=== PATIENT | male | born 1975 | race Caucasian/White ===

== ENCOUNTER 2021-05-15 12:52 | Emergency (ER) | payer MEDICAID, SELFPAY ==
[2021-05-15 13:07] VITALS: BP 117/78; PULSE 74; RESP 16; O2SAT 100; BMI 20.9
--- NOTE | 2021-05-15 13:25 | CT_ITS ---
WS: [id number] CT THORACIC SPINE HISTORY: trauma/struck by cow TECHNIQUE: Contiguous 2.5 mm axial images are reviewed to thoracic spine. Images are reformatted in s agittal and coronal planes. All CT scans at [facility] use at least one of these dose optimiz ation techniques: automated exposure control; mA and/or kV adjustment per patient size (includes targ eted exams where dose is matched to clinical indication); or iterative reconstruction. DLP: 1547.01 mGy.cm COMPARISON: None available. Normal thoracic alignment. No vertebral body fractures. Posterior elements are intact. The adjacent l ungs are clear. No pneumothorax or pulmonary contusion. No soft tissue injury is evident through the region of the thoracic spine. No disc protrusions or hematoma. CT/CT thoracic spin wo con* [id number] IMPRESSION: Negative thoracic spine CT. No fractures or soft tissue injury.
--- NOTE | 2021-05-15 13:25 | XR_ITS ---
WS: [id number] XR shoulder LT min 2V* 75475 REASON FOR EXAM: trauma; y view too please FINDINGS: Fracture of the distal end of the clavicle with mild superior displacement of the distal fracture fra gment. Glenohumeral joint is intact. No abnormality of the humerus. XR/XR shoulder LT min 2V* [id number] IMPRESSION: Fracture distal left clavicle.
--- NOTE | 2021-05-15 13:25 | XR_ITS ---
WS: [id number] XR forearm RT 2V [id number] REASON FOR EXAM: trauma FINDINGS: No fracture or other focal abnormality of the right radius or ulna. No soft tissue abnormality. XR/XR forearm RT 2V 87415 IMPRESSION: No significant abnormality of the right radius or ulna.
--- NOTE | 2021-05-15 13:25 | XR_ITS ---
WS: [id number] XR elbow RT min 3V* 56079 REASON FOR EXAM: trauma FINDINGS: Joint spaces of the right elbow are intact. No fracture or other focal bone abnormality. XR/XR elbow RT min 3V* 88445 IMPRESSION: No significant bone or joint abnormality of the right elbow.
--- NOTE | 2021-05-15 13:25 | XR_ITS ---
WS: [id number] [place] [address] REASON FOR EXAM: trauma/cow; laceration FINDINGS: No fracture or other focal abnormality of the right humerus. Apparent soft tissue injury adjacent to the distal humerus. XR/[place] [address] IMPRESSION: No abnormality of the right humerus.
--- NOTE | 2021-05-15 13:27 | ED_ITS ---
HPI - Trauma General: Chief Complaint: Extremity Injury, Upper Stated Complaint: TRAUMA:1200LB STEER OVERRAN PT/UPPER BODY INJURIES Time Seen by Provider: 05/15/21 13:17 Source: patient Mode of arrival: ambulatory Limitations: no limitations History of Present Illness: HPI narrative: Patient is a very nice 45-year-old male who presents to ED today along with his after he was struck by a 1200 pound cow/steer. He states the steer pinned him up against a cattle trailer gat e. He complains of pain to his left shoulder and near his right elbow. He has a laceration above his right elbow where he states his arm was punctured by a horn. Last tetanus was approximately 7 years ago. He states he was never knocked to the ground or trampled. No trauma to his head. No LOC. He does not complain of neck pain. He has some mid left-sided back pain. No abdominal pain MD complaint: injury Onset (ago): hour(s) Loss of Consciousness: no Location - Extremities: Left: shoulder and Right: elbow Associated symptoms: Reports no associated symptoms, back pain and chest pain (has some mild anterior chest pains afterwards but states these have subside); Denies abdominal pain, chills, dizziness, epistaxis, fever(s), headache(s), nausea, syncope or vomiting Review of Systems Const: Denies: fever(s), chills, body aches, fatigue or malaise Eyes: Denies: change in vision or blurry vision ENMT: Denies: throat pain, odynophagia, ear discharge, nasal discharge or epistaxis Card: Reports: chest pain (has some mild anterior chest pains afterwards but states these have subside); Denies: palpitations, irregular heart rhythm, edema, swelling of feet/ankles, lightheadedness, syncope or pre-syncope Resp: Denies: dyspnea or hemoptysis GI: Denies: abdominal pain, nausea or vomiting : Denies: flank pain or hematuria Musc: Reports: back pain, extremity pain, extremity swelling, joint pain (L shoulder, R elbow/forearm), joint swelling and limited range of motion; Denies: neck pain, joint redness or joint warmth Skin/Breast: Reports: other (laceration R UE) Neuro: Denies: headache(s), numbness in extremities, weakness in extremities, sensory changes, difficulty walking or dizziness Physical Exam Const: COMMON NORMALS: no acute distress, average body habitus, patient oriented x3, no limitations, healthy appearing, alert and well nourished GENERAL APPEARANCE: cooperative ORIENTATION/CONSCIOUSNESS: Yes awake, Yes oriented to person, Yes oriented to place and Yes oriented to time HENMT: COMMON NORMALS: normocephalic and atraumatic HEAD & SCALP: normal to inspection, normocephalic and atraumatic FACE & SINUS: normal facial exam Neck/C-Spine: COMMON NORMALS: full ROM GENERAL: Yes normal visual inspection CERVICAL SPINE: Yes cervical ROM normal, No Cervical spine tenderness, No step off deformity and No Paracervical muscle tenderness Chest: COMMONS NORMALS: normal inspection of the chest OTHER: mild pain to superior sternum and superior L anterior ribs; no creptius or external signs of trauma noted Resp: COMMON NORMALS: normal respiratory effort and clear to auscultation bilaterally AUSCULTATION: clear to auscultation bilaterally Cardio: COMMON NORMALS: regular rate and regular rhythm RATE: regular rate RHYTHM: regular rhythm GI: COMMON NORMALS: Normal to inspection, nondistended, normoactive bowel sounds present, Soft to palpation, non-tender, No hepatosplenomegaly present and no masses PALPATION: Yes Soft to palpation and Yes No hepatosplenomegaly present Back/Pelvis: THORACIC SPINE/UPPER BACK: Yes normal to inspection, Yes thoracic ROM normal, No thoracic spinal tenderness, Yes paraspinal muscle tenderness Thoracic paraspinal muscle tenderness: left and No paraspinal muscle spasm LUMBAR SPINE/LOWER BACK: Yes normal to inspection, Yes lumbar ROM normal, No lumbar spinal tenderness and No paraspinal muscle tenderness BACK IMAGE (MALE): 1. TTP Extremity: RIGHT UPPER EXTREMITY: Yes upper arm (laceration to distal upper arm) and Yes lower arm (mild pain/swelling noted to forearm) LEFT UPPER EXTREMITY: Yes shoulder joint Left shoulder joint: Yes inspection (ecchymosis/abrasions/swelling), Yes ROM (severely limited secondary to pain) and Yes neurovascular exam (normal) OTHER: pt has tenderness across R AC fossa and into distal bicep muscle; he has no evidence of a LHBT rupture at this time but could potentially have a distal bicep tendon tear Neuro: COMMON NORMALS: patient oriented x3, moves all extremities, no focal motor deficits and no sensory deficits noted SENSORIUM/ORIENTATION: Yes alert, Yes oriented to person, Yes oriented to place and Yes oriented to time Skin: NARRATIVE SKIN EXAM: ecchymosis/abrasions to L shoulder; 3.5cm laceration superior to R elbow-no bleeding Procedures Laceration Laceration 1: Site: upper extremity Side (If applicable): right Size (cm): 3.5 Description: linear Depth: simple, single layer Local Anesthetic: lidocaine 1% Amount of anesthesia used (mL): 4.0 Pre-repair: wound explored and irrigated extensively Skin layer closed with: nylon Size (cm): 4-0 Number of sutures: 5 Technique: simple, interrupted Course Vital Signs: Vital signs: Vital Signs Pulse Rate 74 05/15/21 13:07 Respiratory Rate 16 05/15/21 13:07 Blood Pressure 117/78 05/15/21 13:07 Pulse Oximetry 100 05/15/21 13:07 MDM - Trauma MDM Narrative: Medical decision making narrative: Pt has a L distal clavicle fracture that will be placed in a sling and CM will set him up with orthopedics. R arm laceration repaired as documented. No vascular or nerve injury noted on exam. He does have some muscle tenderness into forearm, across AC joint, and into distal biceps. Recommend ortho evaluate this during his follow up appointment to see if he possibly tore a ligament/tendon here. Wound care discussed at home. Return to ED precautions given. Imaging Data^: CT thoracic: Radiologist's impression: [address] [place] [address] CT Scan Report Signed Patient: Parth Monet Unit #: [id number] : 1975 Age/Sex: 45 / M ADM Date: 05/15/21 Loc: ER Room/Bed: Attending Dr: Ordering Provider/Ordering MD: Sherrie Romero Date of Service: 05/15/21 Procedure(s): CT thoracic spin wo con* [id number] Accession Number(s): [id number] Report Number: [id number] WS: [id number] CT THORACIC SPINE HISTORY: trauma/struck by cow TECHNIQUE: Contiguous 2.5 mm axial images are reviewed to thoracic spine. Images are reformatted in sagittal and coronal planes. All CT scans at [facility] use at least one of these dose optimization techniques: automated exposure control; mA and/or kV adjustment per patient size (includes targeted exams where dose is matched to clinical indication); or iterative reconstruction. DLP: 1547.01 mGy.cm COMPARISON: None available. Normal thoracic alignment. No vertebral body fractures. Posterior elements are intact. The adjacent lungs are clear. No pneumothorax or pulmonary contusion. No soft tissue injury is evident through the region of the thoracic spine. No disc protrusions or hematoma. CT/CT thoracic spin wo con* [id number] IMPRESSION: Negative thoracic spine CT. No fractures or soft tissue injury. Dictated By: Josefina Thibodeaux DO Signed By: Josefina Thibodeaux DO Signed Date/Time: 05/15/211355 DD/ 52 CT Chest: Radiologist's impression: [facility] [place] [address] 75CT Scan ReportSigned Patient: Parth Monet #: [id number]: 1975Acct#:[id number] e/Sex: 45 / MADM Date: 05/15/21Loc: ERRoom/Bed:Attending Dr: Ordering Provider/Ordering MD: Sherrie Romero Date of Service: 05/15/21 Procedure(s): CT chest w con* [id number] Accession Number(s): [id number] Report Number: [id number] WS: [id number] CT CHEST WITH INTRAVENOUS CONTRAST HISTORY: trauma/struck by cow TECHNIQUE: Contiguous 5 mm axial imaging performed on the thorax. Coronal and sagittal reformats are submitted. All CT scans at [facility] use at least one of these dose optimization techniques: automated exposure control; mA and/or kV adjustment per patient size (includes targeted exams where dose is matched to clinical indication); or iterative reconstruction. CONTRAST: Omnipaque 300; 95 mL IV. DLP: 631.2 mGy.cm COMPARISON: None available. Lungs and central airway: Normal. Pleura: Normal. No pleural effusion. Heart and pericardium: Normal size heart with no pericardial effusion. Mediastinum and latha: No mediastinum or hilar adenopathy. Vessels: Normal size aortic and pulmonary artery. No coronary artery calcifications. Chest wall and lower neck: No soft tissue masses. Upper abdomen: Numerous surgical clips are noted near the GE junction. Osseous structures: No destructive process. CT/CT chest w con* [id number] IMPRESSION: Negative CT chest. No vascular injury or pneumothorax. No pulmonary contusion. Notified SANTOS Hoover at 05/15/2021 2:01 PM. Dictated By:Josefina Thibodeaux DOSigned By:Josefina Thibodeaux DOSigned Date/Time:05/15/21 1401DD/ 1356 XR L shoulder: Radiologist's impression: [employer] [address] [facility] [place] [address] XRay Report Signed Patient: Parth Monet Unit #: [id number] : 1975 Age/Sex: 45 / M ADM Date: 05/15/21 Loc: ER Room/Bed: Attending Dr: Ordering Provider/Ordering MD: Sherrie Romero Date of Service: 05/15/21 Procedure(s): XR shoulder LT min 2V* 62570 Accession Number(s): [id number] Report Number: [id number] WS: [id number] XR shoulder LT min 2V* [id number] REASON FOR EXAM: trauma; y view too please FINDINGS: Fracture of the distal end of the clavicle with mild superior displacement of the distal fracture fragment. Glenohumeral joint is intact. No abnormality of the humerus. XR/XR shoulder LT min 2V* 87937 IMPRESSION: Fracture distal left clavicle. Dictated By: Kristopher Benitez Jr, MD Signed By: Kristopher Benitez Jr, MD Signed Date/Time: 05/15/21 140 DD/ 1359 XR R elbow: Radiologist's impression: [email or web address] [facility], [place] [address]JNig ReportSigned Patient: Parth Monetit #: [id number]: 1975Acct#:[id number]/Sex: 45 / MADM Date: 05/15/21Loc: ERRoom/Bed:Attending Dr: Ordering Provider/Ordering MD: Sherrie Romero Date of Service: 05/15/21 Procedure(s): XR elbow RT min 3V* 11088 Accession Number(s): [id number] Report Number: [id number] WS: [id number] XR elbow RT min 3V* 28210 REASON FOR EXAM: trauma FINDINGS: Joint spaces of the right elbow are intact. No fracture or other focal bone abnormality. XR/XR elbow RT min 3V* 93120 IMPRESSION: No significant bone or joint abnormality of the right elbow. Dictated By:Kristopher Benitez Jr MDSigned By:Kristopher Benitez Jr MDSigned Date/Time:05/15/214DD/ 23 XR R forearm: Radiologist's impression: [email or web address] [address] XRay Report Signed Patient: Parth Monet Unit #: [id number] : 1975 Age/Sex: 45 / M ADM Date: 05/15/21 Loc: ER Room/Bed: Attending Dr: Ordering Provider/Ordering MD: Sherrie Romero Date of Service: 05/15/21 Procedure(s): XR forearm RT 2V 38175 Accession Number(s): [id number] Report Number: [id number] WS: [id number] XR forearm RT 2V 56859 REASON FOR EXAM: trauma FINDINGS: No fracture or other focal abnormality of the right radius or ulna. No soft tissue abnormality. XR/XR forearm RT 2V 07791 IMPRESSION: No significant abnormality of the right radius or ulna. Dictated By: Kristopher Benitez Jr, MD Signed By: Kristopher Benitez Jr, MD Signed Date/Time: 05/15/211425 DD/ 24 XR R humerus: Radiologist's impression: [email or web address] [place] [address] XRay Report Signed Patient: TierneyParth Dowell Unit #: [id number] : 1975 Age/Sex: 45 / M ADM Date: 05/15/21 Loc: ER Room/Bed: Attending Dr: Ordering Provider/Ordering MD: Sherrie Romero Date of Service: 05/15/21 Procedure(s): [place] [address] Accession Number(s): [id number] Report Number: [id number] WS: [id number] [address] REASON FOR EXAM: trauma/cow; laceration FINDINGS: No fracture or other focal abnormality of the right humerus. Apparent soft tissue injury adjacent to the distal humerus. XR/[place] [address] IMPRESSION: No abnormality of the right humerus. Dictated By: Kristopher Benitez Jr, MD Signed By: Kristopher Benitez Jr, MD Signed Date/Time: 05/15/211422 DD/ 21 Discharge Plan Discharge Patient Disposition: Home Clinical Impression: Closed fracture of left clavicle Qualifiers: Encounter type: initial encounter Clavicle location: lateral end Fracture ali gnment: nondisplaced Qualified Code(s): S42.035A - Nondisplaced fracture of lateral end of left clavicle, initial encounter for closed fracture Laceration of right upper extremity Qualifiers: Encounter type: initial encounter Qualified Code(s): S41.111A - Laceration without foreign body of right upper arm, initial encounter Injury caused by animal Qualifiers: Encounter type: initial encounter Qualified Code(s): W64.XXXA - Exposure to other animate mechanical forces, initial encounter Condition: Stable Prescriptions: New hydrocodone-acetaminophen 5-325 mg tablet 1 tab PO Q4H PRN (Reason: pain) Qty: 20 RF: 0 Discharge Orders: Discharge ED (Routine); Ordered 05/15/21 Ordered By: Sherrie Romero Referrals: Zoey Dickey MD [Primary Care Provider] - Patient Instructions: Clavicle Fracture (ED), Laceration (ED), Opioid Safety Activity Restrictions/Additional Instructions: [facility] is committed to fighting the nationwide opiate epidemic. We are providing ALL patients with information regarding opiate safety. If you received opiate pain medication during your stay or if you received a prescription for opiate pain medication-please review this handout. If not, you may disregard. Thank you. Keep wound/laceration clean with warm soap and water twice daily. Monitor for signs of infection such as redness, swelling, increased pain, or drainage. Please seek medical re-evaluation if these occur. If you received sutures today these will need to be removed (unless you were told by the provider that they are absorbable). The provider should have discussed with you the length of time until removal-7 DAYS. You may return to the emergency department for this service. If your wound was closed with Steri-Strips or glue/adhesive these will fall off within the next week or so. As discussed case management should contact you shortly to set you up with your orthopedic follow-up appointment. Coding Level of Care Code ED Train Electronic Technician for Kateryna Shea Exam Comprehensive
--- NOTE | 2021-05-20 09:53 | DCPLANNER ---
manager pe had message to schedule a follow up appointment for patient with ortho. manager pe called the ortho clinic, spoke with Kati, gave clinic patients information. manager pe was told that patients information would be printed and reviewed. Clinic will call patient with appointment information.
--- NOTE | 2021-05-24 14:23 | DCPLANNER ---
Patient had a follow up appointment scheduled for 05.21.21 with ortho - patient did attend appointment.
== END 2021-05-15 15:44 | disposition home or self-care (01) ==
PROVIDERS: Emergency Provider Physician Assistant; PCP Family Medicine
DX: S42.035A Nondisplaced fracture of lateral end of left clavicle, initial encounter for closed fracture (principal); S41.111A Laceration without foreign body of right upper arm, initial encounter; W55.22XA Struck by cow, initial encounter
CPT/HCPCS: 12002; 71260; 72128; 73030; 73060; 73080; 73090; 99282; Q9967

== ENCOUNTER → 2021-05-21 10:49 | Outpatient (BNVA) | payer MEDICAID, SELFPAY | PROVIDERS: PCP Family Medicine; Referring Provider Physician Assistant; Visit Provider Physician Assistant | DX: S42.032A Displaced fracture of lateral end of left clavicle, initial encounter for closed fracture (principal); W55.29XA Other contact with cow, initial encounter | CPT/HCPCS: 73000 ==

== ENCOUNTER 2021-06-18 13:03 | Outpatient (CLI) | payer MEDICAID, SELFPAY ==
--- NOTE | 2021-06-18 13:11 | MR_ITS ---
WS: [id number] MRI RIGHT ELBOW without CONTRAST. COMPARISON: None Multiplanar, multisequence imaging is performed without contrast. There is a moderate size fluid gap along the lateral distal humerus within the soft tissues. This flu id gap extends over a width of 1.9 cm x 1.4 x 2.5 cm and involves the brachioradialis muscle and the extensor carpi radialis longus muscle. There is soft tissue injury with muscle injury. There is at le ast a partial tear with a few soft tissue artifacts which may be from prior suture material or foreig n body. The entire soft tissue injury is not included in this examination is a soft tissue injury ext ends proximal to the elbow. There is no bone injury identified. No marrow edema or fracture. No joint effusion at the elbow. Ther e is a small amount of increased signal centrally within the common extensor tendon along the lateral epicondyle. MR/MR elbow RT wo con* [id number] IMPRESSION: 1. Fluid filled gap with adjacent edema involving the brachioradialis muscle a nd the adjacent extensor carpi radialis longus muscle along the distal lateral humerus. There is at least partial muscle tear with soft tissue injury. 2. No fracture or marrow edema. 3. Mild intrasubstance degeneration involving the common extensor tendon.
== END 2021-06-18 13:04 | disposition home or self-care (01) ==
PROVIDERS: PCP Family Medicine; Visit Provider Physician Assistant
DX: S46.211A Strain of muscle, fascia and tendon of other parts of biceps, right arm, initial encounter (principal); X58.XXXA Exposure to other specified factors, initial encounter
CPT/HCPCS: 73221

== ENCOUNTER → 2021-07-02 08:50 | Outpatient (BNVA) | payer MEDICAID, SELFPAY | PROVIDERS: PCP Family Medicine; Visit Provider Physician Assistant | DX: S42.032D Displaced fracture of lateral end of left clavicle, subsequent encounter for fracture with routine healing (principal); W55.22XD Struck by cow, subsequent encounter | CPT/HCPCS: 73000 ==

== ENCOUNTER → 2021-08-06 08:23 | Outpatient (BNVA) | payer MEDICAID, SELFPAY | PROVIDERS: PCP Family Medicine; Visit Provider Physician Assistant | DX: S42.032A Displaced fracture of lateral end of left clavicle, initial encounter for closed fracture (principal); X58.XXXA Exposure to other specified factors, initial encounter | CPT/HCPCS: 73000 ==

== ENCOUNTER → 2021-08-29 15:01 | Outpatient (BNVA) | payer MEDICAID, SELFPAY | PROVIDERS: PCP Family Medicine; Visit Provider Orthopaedic Surgery | DX: S42.002A Fracture of unspecified part of left clavicle, initial encounter for closed fracture (principal); R20.0 Anesthesia of skin; X58.XXXA Exposure to other specified factors, initial encounter | CPT/HCPCS: 72050; 73000 ==

== ENCOUNTER → 2021-10-03 08:29 | Outpatient (BNVA) | payer MEDICAID, SELFPAY | PROVIDERS: PCP Family Medicine; Visit Provider Orthopaedic Surgery | DX: S42.002A Fracture of unspecified part of left clavicle, initial encounter for closed fracture (principal); R20.0 Anesthesia of skin; X58.XXXA Exposure to other specified factors, initial encounter | CPT/HCPCS: 73000 ==

== ENCOUNTER 2021-11-13 11:04 | Outpatient (CLI) | payer MEDICAID, SELFPAY ==
--- NOTE | 2021-11-13 11:18 | MR_ITS ---
WS: [id number] MRI CERVICAL SPINE NONCONTRAST TECHNIQUE: Sagittal T1, T2 and STIR imaging. Axial T2, gradient, and fiesta imaging. CLINICAL INFORMATION: M54.2 - Cervicalgia COMPARISON: None. FINDINGS: Straightening of the normal cervical lordosis. Cord signal is normal. No high-grade central canal gautam nosis. C2-C3: Normal. C3-C4: Mild disc osteophytic ridging. Mild facet arthropathy. Mild LEFT greater than RIGHT foraminal narrowing. C4-C5: Mild bilateral bony foraminal narrowing. Mild facet arthropathy. Spinal canal is patent. C5-C6: No significant disc bulging. Mild facet arthropathy. Mild LEFT and no significant RIGHT forami nal narrowing. C6-C7: Mild disc osteophytic ridging. Mild to moderate LEFT and no significant RIGHT foraminal narrow ing. Spinal canal is patent. C7-T1: No significant disc bulging. Mild osteophytic ridging. Mild LEFT and no significant RIGHT fora shashi narrowing. Mild facet arthropathy. Visualized brain stem structures: Normal. Prevertebral soft tissues: Normal. MR/MR cervical spin wo con* [id number] IMPRESSION: 1. Straightening of the normal cervical lordosis. No high-grade central canal narrowing. Cord signal is normal. 2. Mild bony foraminal narrowing more prominent at LEFT C4-C5, LEFT C5-C6, LEF T C6-C7 and LEFT C7-T1. This appears most prominent at LEFT C6-C7. 3. Mild facet arthropathy more prominent at C3-C4 C4-C5 and C5-C6.
== END 2021-11-13 11:05 | disposition home or self-care (01) ==
PROVIDERS: PCP Family Medicine; Visit Provider Orthopaedic Surgery
DX: M47.812 Spondylosis without myelopathy or radiculopathy, cervical region (principal)
CPT/HCPCS: 72141

== ENCOUNTER 2021-11-28 07:25 | Day surgery (SDC) | payer MEDICAID, SELFPAY ==
[2021-11-26 12:57] VITALS: BMI 20.9
[2021-11-28 07:38] VITALS: BP 111/70; PULSE 66; RESP 16; TEMP 36.2; O2SAT 100
[2021-11-28] MEDS: sodium chloride 0.9% 1,000 ML 30 ML IV (07:47)
--- NOTE | 2021-11-28 08:28 | W.PM.OPSUD ---
Surgery/Procedure H&P Update DATE OF PROCEDURE: November 28, 2021 DATE H&P PERFORMED: 11/13/21 H&P UPDATE INFORMATION: I have reviewed H&P completed within last 30 days, I have examined patient prior to procedure and No changes to prior documentation PRIMARY INDICATION FOR PROCEDURE: The same PLANNED PROCEDURE: Operation Date: 11/28/21 09:00 Proposed Procedures p Colonoscopy 43226/z12.11(Not Applicable) - Arturo Narvaez MD
--- NOTE | 2021-11-28 08:50 | ANES.PREANE2 ---
Pre-Anesthetic Assessment Height/Weight: Height 1.8 m Weight 68.039 kg Temp Pulse Resp BP Pulse Ox 97.2 F L 66 16 111/70 100 11/28/21 07:38 11/28/21 07:38 11/28/21 07:38 11/28/21 07:38 11/28/21 07:38 Preop Diagnosis: screening Operation Date: 11/28/21 09:00 Proposed Procedures p Colonoscopy 53292/z12.11(Not Applicable) - Arturo Narvaez MD Familial anesthetic complications: Patient reports apnea with propofol in ED after acute fracture Was Beta Roderick taken within 24 hours: N/A Was Clonidine taken within 24 hours: N/A Last intake: Intake Last Liquid Date 11/28/21 Last Liquid Time 06:00 Last Solid Date 11/26/21 Last Solid Time 20:00 Social No alcohol and No tobacco Exam alert, oriented x 3, clear to auscultation bilaterally and regular rate & rhythm Airway Submandibular: within normal limits Cervical ROM: within normal limits Mallampati: Class I Dentition: full History/ROS No significant complaints Pulmonary None reported CV/HEM None reported METS > 4 None reported Hepatic None reported GI None reported Metabolic None reported Musc/skel Hx of ortho trauma Neuropsych None reported Anesthetic Plan ASA status: 1 Anesthesia: Anesthesia Evaluation, General and MAC Other: I discussed with the patient risks, goals, and benefits of MAC and general anesthesia. We discussed spectrum of MAC anesthesia including conversion to general as well as possibility of recall of intraoperative stimuli including discomfort/pain. Patient agrees to proceed with MAC. Risk of > 500 ml blood loss (7ml/kg in children): No Medications/Allergies Home Medications Medication Instructions Recorded Confirmed Last Taken Type No Known Home Medications 11/13/21 11/28/21 Unknown History Allergies Allergy/AdvReac Type Severity Reaction Status Date / Time oxycodone Allergy itching Verified 11/28/21 07:37 Current Medications Generic Name Dose Route Start Last Admin Trade Name Freq PRN Reason Stop Dose Admin Sodium Chloride 1,000 mls @ 30 mls/hr 11/28/21 07:45 11/28/21 07:47 Sodium Chloride 0.9% IV 11/29/21 07:44 30 mls/hr .Q24H LOIS Administration PFSH Anesthesia Medical History Closed left clavicular fracture Social History Smoking and tobacco status: never smoked Data Anesthesia Cardiac Studies: No Data to Display
[2021-11-28 09:15] VITALS: BP 97/65; PULSE 77; RESP 20; TEMP 36.5; O2SAT 100
--- NOTE | 2021-11-28 09:18 | ANE.PACU2 ---
Documented by User: Karlene Hughes CRNA 11/28/21 09:19 Inpatient post-anesthesia follow up: Airway intact: Yes Vital signs: Temperature 97.7 F Pulse Rate 77 Respiratory Rate 20 Blood Pressure 97/65 Pulse Oximetry 100 Oxygen Delivery Me thod Room Air Oxygen Flow Rate Fraction of Inspir ed Oxygen Hydration adequate: Yes Nausea and vomiting: No Pain level: 1 Mental status: Baseline
[2021-11-28 09:23] VITALS: BP 93/66; PULSE 75; RESP 20; O2SAT 100
== END 2021-11-28 09:50 | disposition home or self-care (01) ==
PROVIDERS: PCP Family Medicine; Visit Provider Surgery
PROC: 0DJD8ZZ Inspection of Lower Intestinal Tract, Via Natural or Artificial Opening Endoscopic (ICD-10-PCS; CPT 45378; principal; 2021-11-28 09:00)
DX: R19.4 Change in bowel habit (principal)
CPT/HCPCS: 45378; J2704; J7030

== ENCOUNTER → 2021-12-05 08:02 | Outpatient (BNVA) | payer MEDICAID, SELFPAY | PROVIDERS: PCP Family Medicine; Referring Provider Orthopaedic Surgery; Visit Provider Specialist | DX: M25.521 Pain in right elbow (principal); M50.90 Cervical disc disorder, unspecified, unspecified cervical region | CPT/HCPCS: 95886; 95910 ==

== ENCOUNTER → 2021-12-11 08:08 | Outpatient (BNVA) | payer MEDICAID, SELFPAY | PROVIDERS: PCP Family Medicine; Visit Provider Surgery | DX: R19.4 Change in bowel habit (principal) | CPT/HCPCS: 99213 ==